=== PATIENT | male | born 1980 | race Two or more races ===

== ENCOUNTER 2017-07-17 15:23 | Emergency (ER) | payer SELFPAY ==
[~2017-07-17] VITALS: Ht 172.7 cm; Wt 99.8 kg
--- NOTE | 2017-07-17 15:30 | NUR ---
SELF PRESENTS TO ER C/O LOWER BACK PAIN. Hx OF HERNIATED L2-L4 DISCS. A/OX 4. BREATHING EVEN AND UNLABORED. NO SOB. VITALS STABLE. SAFETY AND COMFORT MEASURES IN PLACE. AWAITING MD ORDERS.
[2017-07-17] MEDS ORDERED: IBUPROFEN 600 MG TABLET PO ONE ×2 (15:48→16:00)
[2017-07-17] MEDS ORDERED: MORPHINE SULFATE INJ 4 MG/ML DISP.SYRIN ONE (15:48)
[2017-07-17] MEDS ORDERED: ONDANSETRON 4 MG TAB.RAPDIS ONE (15:48)
[2017-07-17] MEDS ORDERED: ONDANSETRON 4 MG TAB.RAPDIS SL ONE (16:00)
[2017-07-17] MEDS ORDERED: MORPHINE SULFATE INJ 2 MG/ML DISP.SYRIN IM ONE (16:00)
[2017-07-17 16:50] VITALS: BP 140/83
== END 2017-07-17 16:50 | disposition home or self-care (01) ==
LOC: ER 15:27
DX: M54.5 Low back pain (principal); G89.29 Other chronic pain
CPT/HCPCS: 96372; 99283; A4606; J2270; Q0162; Z7610

== ENCOUNTER 2017-07-26 15:44 | Emergency (ER) | payer OTHER ==
[~2017-07-26] VITALS: Ht 172.7 cm; Wt 99.8 kg
[2017-07-26 15:44] VITALS: BP 137/85
--- NOTE | 2017-07-26 15:50 | NUR ---
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 VSS.
--- NOTE | 2017-07-26 17:15 | NUR ---
Patient has signed AMA form.LEFT WITHOUT BEEING SEEN
== END 2017-07-26 17:16 | disposition left against medical advice (07) ==
LOC: ER 15:50
DX: Z53.21 Procedure and treatment not carried out due to patient leaving prior to being seen by health care provider (principal)
CPT/HCPCS: A4606; Z7610